=== PATIENT | male | born 1980 | race Caucasian/White ===

== ENCOUNTER → 2024-06-21 | Outpatient (CLI) | payer BC, SELFPAY ==
[2024-06-21 10:38] LABS: Basophils # (Auto) 0.1 Thou/mm3 (0.0-0.2); Basophils % (Auto) 1 % (0-2.5); Eosinophils # (Auto) 0.2 Thou/mm3 (0.0-0.5); Eosinophils % (Auto) 2 % (0-10); Hemoglobin 15.6 g/dL (13.5-16.0); Immature Granulocytes % (Auto) 1 % (0-0); Immature Granulocytes Auto 0.05 Thou/mm3 (0.00-0.00); Lymphocytes # (Auto) 2.2 Thou/mm3 (1.0-4.8); Lymphocytes % (Auto) 23 % (10-50); Mean Corpuscular HGB Conc 33.2 g/dl (31.0-37.0); Mean Corpuscular Hemoglobin 33.3 pg (25.0-35.0); Mean Corpuscular Volume 100 fL (80-100); Monocytes % (Auto) 10 % (0-12); Neutrophils # (Auto) 6.1 Thou/mm3 (1.8-7.7); Neutrophils % (Auto) 63 % (37-80); Nucleated Red Blood Cell % 0 /100 WBC (0); Platelet Count 256 Thou/mm3 (140-440); RDW Standard Deviation 53.9 fL (35.1-43.9); Red Blood Count 4.68 Miln/mm3 (4.50-5.90); White Blood Count 9.7 Thou/mm3 (3.8-10.6)
[2024-06-21 10:49] LABS: PSA Medicare Annual Scrn 0.79 ng/mL (0-4.00)
[2024-06-21 10:52] LABS: Alanine Aminotransferase 52 U/L (10-49); Albumin, Serum 4.5 gm/dL (3.5-5.0); Albumin/Globulin Ratio 1.8 (1.2-2.2); Alkaline Phosphatase 67 U/L (46-116); Anion Gap 6 (7-16); Aspartate Amino Transferase 32 U/L (0-34); BUN/Creatinine Ratio 7 Ratio (12-20); Bilirubin,Total 0.6 mg/dL (0.3-1.2); Blood Urea Nitrogen 6 mg/dL (9-23); Carbon Dioxide 29.3 mMol/L (20.0-31.0); Chloride 104 mMol/L (98-107); Cholesterol 155 mg/dL (132-200); Creatinine (Component) 0.9 mg/dL (0.6-1.3); Globulin 2.5 gm/dL (2.3-3.5); Glucose 109 mg/dL (74-106); HDL Cholesterol 39 mg/dL (40-60); LDL Cholesterol,Calculated 94 mg/dL (0-130); Osmolality,Calculated 276 (275-295); Potassium 3.9 mMol/L (3.4-5.1); Sodium 139 mMol/L (136-145); Triglycerides 110 mg/dL (30-150); Uric Acid 6.1 mg/dL (3.7-9.2); eGFR > 60 See Note
[2024-06-21 11:06] LABS: Creatinine MALB Rnd Ur 218 mg/dL (30-125); Microalbumin Creat Ratio 130 mg/gCrea (<30); Microalbumin, Random Urine 284 mg/L (0-300)
[2024-06-21 11:13] LABS: Glucose Estimated Average 100 mg/dL (80-131); Hemoglobin A1C 5.1 % Hgb (4.8-6.0)
[2024-06-28 07:24] LABS: SHBG 15 nmol/L (10-50)
[2024-06-28 07:25] LABS: Albumin 4.1 g/dL (3.6-5.1); Testosterone, Bioavailable 411.2 ng/dL (110.0-575.0); Testosterone, Free 218.4 pg/mL (46.0-224.0); Testosterone,Total 784 ng/dL (250-1100)
== END | disposition home or self-care (01) ==
LOC: COPL 09:27
PROVIDERS: PCP Nurse Practitioner Family; Referring Provider Nurse Practitioner Family; Visit Provider Nurse Practitioner Family
DX: M10.9 Gout, unspecified (principal); E29.1 Testicular hypofunction; I10 Essential (primary) hypertension; Z12.5 Encounter for screening for malignant neoplasm of prostate
CPT/HCPCS: 36415; 80053; 80061; 82040; 82043; 82570; 83036; 84153; 84270; 84403; 84550; 85025; G0103

== ENCOUNTER → 2024-07-30 | Outpatient (CLI) | payer BC, SELFPAY ==
--- NOTE | 2024-07-30 08:32 | XR_ITS ---
Examination: PA lateral chest 2 views TECHNIQUE: Upright PA lateral chest 2 views Exam date and time: July 30, 2024 0853 hours Comparison September 29, 2023 INDICATIONS: Coughing shortness of breath chest congestion beginning 6 days ago. FINDINGS: Normal heart size Mild opacity left base posteriorly obscuring detail hemidiaphragm No pulmonary edema IMPRESSION: Early pneumonia posterior basal segment left lower lobe
== END | disposition home or self-care (01) ==
LOC: CDIM 08:26
PROVIDERS: PCP Nurse Practitioner Family; Referring Provider Nurse Practitioner Family; Visit Provider Nurse Practitioner Family
DX: J18.9 Pneumonia, unspecified organism (principal)
CPT/HCPCS: 71046

== ENCOUNTER → 2024-09-01 | Outpatient (CLI) | payer BC, SELFPAY ==
[2024-09-01 08:35] LABS: Misc Send Out* See Sep Rpt
[2024-09-01 09:21] LABS: Basophils # (Auto) 0.1 Thou/mm3 (0.0-0.2); Basophils % (Auto) 1 % (0-2.5); Eosinophils # (Auto) 0.4 Thou/mm3 (0.0-0.5); Eosinophils % (Auto) 4 % (0-10); Hematocrit 53.4 % (41.0-53.0); Hemoglobin 18.2 g/dL (13.5-16.0); Immature Granulocytes % (Auto) 1 % (0-0); Immature Granulocytes Auto 0.05 Thou/mm3 (0.00-0.00); Lymphocytes % (Auto) 20 % (10-50); Mean Corpuscular HGB Conc 34.1 g/dl (31.0-37.0); Mean Corpuscular Hemoglobin 33.3 pg (25.0-35.0); Mean Corpuscular Volume 98 fL (80-100); Monocytes # (Auto) 0.9 Thou/mm3 (0.0-0.8); Monocytes % (Auto) 9 % (0-12); Neutrophils # (Auto) 6.5 Thou/mm3 (1.8-7.7); Neutrophils % (Auto) 65 % (37-80); Nucleated Red Blood Cell % 0 /100 WBC (0); Platelet Count 284 Thou/mm3 (140-440); RDW Standard Deviation 48.6 fL (35.1-43.9); Red Blood Count 5.47 Miln/mm3 (4.50-5.90); White Blood Count 9.9 Thou/mm3 (3.8-10.6)
[2024-09-01 09:36] LABS: Glucose Estimated Average 103 mg/dL (80-131); Hemoglobin A1C 5.2 % Hgb (4.8-6.0)
[2024-09-01 09:45] LABS: Vitamin D 25 Hydroxy Total 38.7 ng/mL (7.3-40.2)
[2024-09-01 10:06] LABS: PSA Medicare Annual Scrn 1.48 ng/mL (0-4.00); T4 (Thyroxine) 5.6 mcg/dL (4.5-10.9)
[2024-09-01 10:08] LABS: Creatinine MALB Rnd Ur 88 mg/dL (30-125); Microalbumin Creat Ratio 75 mg/gCrea (<30); Microalbumin, Random Urine 66 mg/L (0-300)
[2024-09-01 10:08] LABS: Alanine Aminotransferase 43 U/L (10-49); Albumin, Serum 4.6 gm/dL (3.5-5.0); Albumin/Globulin Ratio 1.9 (1.2-2.2); Alkaline Phosphatase 54 U/L (46-116); Anion Gap 8 (7-16); Aspartate Amino Transferase 43 U/L (0-34); BUN/Creatinine Ratio 10 Ratio (12-20); Blood Urea Nitrogen 9 mg/dL (9-23); C-Reactive Protein < 0.4 mg/dL (0.0-0.9); Carbon Dioxide 28.7 mMol/L (20.0-31.0); Cardiac Risk Estimate 4.3 RATIO (4.0-6.7); Chloride 100 mMol/L (98-107); Cholesterol 146 mg/dL (132-200); Creatinine (Component) 0.9 mg/dL (0.6-1.3); Globulin 2.4 gm/dL (2.3-3.5); Glucose 80 mg/dL (74-106); HDL Cholesterol 34 mg/dL (40-60); LDL Cholesterol,Calculated 92 mg/dL (0-130); Osmolality,Calculated 271 (275-295); Potassium 3.9 mMol/L (3.4-5.1); Sodium 137 mMol/L (136-145); Thyroid Stimulating Hormone 2.56 uIU/mL (0.55-4.78); Triglycerides 101 mg/dL (30-150); Uric Acid 7.9 mg/dL (3.7-9.2); eGFR > 60 See Note
[2024-09-06 17:49] LABS: Thyroglobulin Antibodies <1 IU/mL (< OR = 1)
[2024-09-07 07:07] LABS: C-Peptide* 2.93 ng/mL (0.80-3.85); Sex Hormone Binding Globulin* 18 nmol/L (10-50); T3, Reverse, LC/MS/MS* 16 ng/dL (8-25); Testosterone, Free,Dialysis 362.9 pg/mL (35.0-155.0); Testosterone, Total, Dialysis 1173 ng/dL (250-1100); Thyroglobulin 13.1 ng/mL
== END | disposition home or self-care (01) ==
LOC: COPL 08:05
PROVIDERS: PCP Nurse Practitioner Family; Referring Provider Nurse Practitioner Family; Visit Provider Nurse Practitioner Family
DX: I10 Essential (primary) hypertension (principal); E29.1 Testicular hypofunction; M10.9 Gout, unspecified; E01.8 Other iodine-deficiency related thyroid disorders and allied conditions; Z12.5 Encounter for screening for malignant neoplasm of prostate; E55.9 Vitamin D deficiency, unspecified; R94.6 Abnormal results of thyroid function studies; R79.89 Other specified abnormal findings of blood chemistry
CPT/HCPCS: 36415; 80053; 80061; 82043; 82306; 82570; 83036; 83789; 84153; 84270; 84402; 84403; 84432; 84436; 84443; 84482; 84550; 84681; 85025; 86140; 86800; G0103

== ENCOUNTER → 2024-09-03 | Outpatient (CLI) | payer BC, SELFPAY ==
[2024-09-03 09:56] LABS: Basophils # (Auto) 0.1 Thou/mm3 (0.0-0.2); Basophils % (Auto) 1 % (0-2.5); Eosinophils # (Auto) 0.4 Thou/mm3 (0.0-0.5); Eosinophils % (Auto) 4 % (0-10); Immature Granulocytes % (Auto) 0 % (0-0); Immature Granulocytes Auto 0.03 Thou/mm3 (0.00-0.00); Lymphocytes # (Auto) 2.2 Thou/mm3 (1.0-4.8); Lymphocytes % (Auto) 20 % (10-50); Mean Corpuscular HGB Conc 33.3 g/dl (31.0-37.0); Mean Corpuscular Hemoglobin 33.3 pg (25.0-35.0); Mean Corpuscular Volume 100 fL (80-100); Monocytes # (Auto) 1.1 Thou/mm3 (0.0-0.8); Monocytes % (Auto) 10 % (0-12); Neutrophils % (Auto) 64 % (37-80); Nucleated Red Blood Cell % 0 /100 WBC (0); Platelet Count 272 Thou/mm3 (140-440); RDW Standard Deviation 49.6 fL (35.1-43.9); White Blood Count 10.9 Thou/mm3 (3.8-10.6)
[2024-09-07 07:08] LABS: Fecal Globin Result NOT DETECTED (NOT DETECTED)
== END | disposition home or self-care (01) ==
LOC: COPL 08:41
PROVIDERS: PCP Family Medicine; Referring Provider Nurse Practitioner Family; Visit Provider Nurse Practitioner Family
DX: I10 Essential (primary) hypertension (principal); Z12.11 Encounter for screening for malignant neoplasm of colon
CPT/HCPCS: 36415; 82274; 85025; G0328

== ENCOUNTER → 2024-09-08 | Outpatient (CLI) | payer BC, SELFPAY ==
--- NOTE | 2024-09-08 10:46 | XR_ITS ---
Examination: Right knee 2 views Technique one AP lateral right knee 2 views Exam date and time: September 08, 2024 1201 hours INDICATIONS: Chronic knee pain with knee surgery 10 years ago. FINDINGS: Moderate to advanced narrowing medial joint space right knee No fracture or dislocation Small knee effusion IMPRESSION: Moderate to advanced narrowing medial joint space right knee
== END | disposition home or self-care (01) ==
PROVIDERS: PCP Nurse Practitioner Family; Referring Provider Nurse Practitioner Family; Visit Provider Nurse Practitioner Family
DX: M25.861 Other specified joint disorders, right knee (principal)
CPT/HCPCS: 73560

== ENCOUNTER → 2024-10-05 | Outpatient (CLI) | payer BC, SELFPAY ==
--- NOTE | 2024-10-05 13:27 | XR_ITS ---
Examination: Abdomen sonogram, Limited Date and time of exam: October 05, 2024 1413 hours INDICATIONS: Left lower abdominal pain beginning 4 days ago diverticulitis history 6 years ago Technique: Real-time comer scale transabdominal sonographic images of the upper abdomen obtained. Findings: Thickened colonic wall IMPRESSION: Significant colonic wall, recommend CT scan abdomen pelvis follow-up to exclude diverticulitis
== END | disposition home or self-care (01) ==
PROVIDERS: PCP Nurse Practitioner Family; Referring Provider Nurse Practitioner Family; Visit Provider Nurse Practitioner Family
DX: R10.32 Left lower quadrant pain (principal)
CPT/HCPCS: 76705

== ENCOUNTER → 2024-12-03 | Outpatient (CLI) | payer BC, SELFPAY ==
[2024-12-03 08:59] LABS: Basophils # (Auto) 0.1 Thou/mm3 (0.0-0.2); Basophils % (Auto) 1 % (0-2.5); Eosinophils # (Auto) 0.1 Thou/mm3 (0.0-0.5); Eosinophils % (Auto) 1 % (0-10); Glucose Estimated Average 100 mg/dL (80-131); Hematocrit 43.1 % (41.0-53.0); Hemoglobin 14.7 g/dL (13.5-16.0); Hemoglobin A1C 5.1 % Hgb (4.8-6.0); Immature Granulocytes % (Auto) 0 % (0-0); Immature Granulocytes Auto 0.04 Thou/mm3 (0.00-0.00); Lymphocytes # (Auto) 2.3 Thou/mm3 (1.0-4.8); Lymphocytes % (Auto) 24 % (10-50); Mean Corpuscular HGB Conc 34.1 g/dl (31.0-37.0); Mean Corpuscular Hemoglobin 33.3 pg (25.0-35.0); Mean Corpuscular Volume 98 fL (80-100); Monocytes % (Auto) 11 % (0-12); Neutrophils # (Auto) 5.9 Thou/mm3 (1.8-7.7); Neutrophils % (Auto) 63 % (37-80); Nucleated Red Blood Cell % 0 /100 WBC (0); Platelet Count 336 Thou/mm3 (140-440); RDW Standard Deviation 51.2 fL (35.1-43.9); Red Blood Count 4.41 Miln/mm3 (4.50-5.90); White Blood Count 9.3 Thou/mm3 (3.8-10.6)
[2024-12-03 09:09] LABS: Alanine Aminotransferase 26 U/L (10-49); Albumin, Serum 4.3 gm/dL (3.5-5.0); Albumin/Globulin Ratio 1.7 (1.2-2.2); Alkaline Phosphatase 58 U/L (46-116); Anion Gap 10 (7-16); Aspartate Amino Transferase 19 U/L (0-34); BUN/Creatinine Ratio 23 Ratio (12-20); Bilirubin,Total 1.2 mg/dL (0.3-1.2); Blood Urea Nitrogen 21 mg/dL (9-23); Calcium 9.5 mg/dL (8.3-10.6); Calcium (Corrected) 9.5 mg/dL (8.5-10.1); Carbon Dioxide 25.9 mMol/L (20.0-31.0); Cardiac Risk Estimate 3.6 RATIO (4.0-6.7); Chloride 105 mMol/L (98-107); Cholesterol 118 mg/dL (132-200); Creatinine (Component) 0.9 mg/dL (0.6-1.3); Globulin 2.6 gm/dL (2.3-3.5); Glucose 100 mg/dL (74-106); HDL Cholesterol 33 mg/dL (40-60); LDL Cholesterol,Calculated 70 mg/dL (0-130); Osmolality,Calculated 284 (275-295); Potassium 4.1 mMol/L (3.4-5.1); Sodium 141 mMol/L (136-145); Thyroid Stimulating Hormone 2.61 uIU/mL (0.55-4.78); Total Protein 6.9 gm/dL (5.7-8.2); Triglycerides 76 mg/dL (30-150); eGFR > 60 See Note
[2024-12-03 09:22] LABS: T4 (Thyroxine) 5.6 mcg/dL (4.5-10.9)
[2024-12-03 09:23] LABS: Creatinine MALB Rnd Ur 98 mg/dL (30-125); Microalbumin Creat Ratio 17 mg/gCrea (<30); Microalbumin, Random Urine 17 mg/L (0-300)
[2024-12-10 06:39] LABS: Gamma Glutamyl Transpeptidase* 33 U/L (3-95); Sex Hormone Binding Globulin* 19 nmol/L (10-50); Testosterone, Free,Dialysis 44.8 pg/mL (35.0-155.0); Testosterone, Total, Dialysis 208 ng/dL (250-1100)
== END | disposition home or self-care (01) ==
LOC: COPL 07:10
PROVIDERS: PCP Internal Medicine; Referring Provider Nurse Practitioner Family; Visit Provider Nurse Practitioner Family
DX: K76.0 Fatty (change of) liver, not elsewhere classified (principal); E29.1 Testicular hypofunction; I10 Essential (primary) hypertension
CPT/HCPCS: 36415; 80053; 80061; 82043; 82570; 82977; 83036; 84270; 84402; 84403; 84436; 84443; 85025

== ENCOUNTER → 2025-02-17 | Outpatient (CLI) | payer BC, SELFPAY ==
--- NOTE | 2025-02-17 10:30 | XR_ITS ---
Examination: Abdomen sonogram, Limited Date and time of exam: February 17, 2025 1045 hours INDICATIONS: Umbilical region tenderness and discomfort several weeks Technique: Real-time comer scale transabdominal sonographic images of the upper abdomen obtained. Findings: Umbilical hernia 17 x 11 x 16 mm IMPRESSION: Umbilical hernia 17 x 11 x 16 mm
== END | disposition home or self-care (01) ==
PROVIDERS: PCP Nurse Practitioner Family; Referring Provider Nurse Practitioner Family; Visit Provider Nurse Practitioner Family
DX: K42.9 Umbilical hernia without obstruction or gangrene (principal)
CPT/HCPCS: 76705

== ENCOUNTER → 2025-04-15 | Outpatient (CLI) | payer BC, SELFPAY ==
[2025-04-15 11:43] LABS: Basophils # (Auto) 0.1 Thou/mm3 (0.0-0.2); Basophils % (Auto) 1 % (0-2.5); Eosinophils # (Auto) 0.1 Thou/mm3 (0.0-0.5); Eosinophils % (Auto) 1 % (0-10); Hematocrit 52.8 % (41.0-53.0); Hemoglobin 17.7 g/dL (13.5-16.0); Immature Granulocytes Auto 0.04 Thou/mm3 (0.00-0.00); Lymphocytes # (Auto) 2.1 Thou/mm3 (1.0-4.8); Lymphocytes % (Auto) 22 % (10-50); Mean Corpuscular HGB Conc 33.5 g/dl (31.0-37.0); Mean Corpuscular Hemoglobin 33.1 pg (25.0-35.0); Mean Corpuscular Volume 99 fL (80-100); Monocytes # (Auto) 1.1 Thou/mm3 (0.0-0.8); Monocytes % (Auto) 12 % (0-12); Neutrophils # (Auto) 6.0 Thou/mm3 (1.8-7.7); Neutrophils % (Auto) 64 % (37-80); Nucleated Red Blood Cell # 0.00 Thou/mm3 (0.00-0.00); Nucleated Red Blood Cell % 0 /100 WBC (0); Platelet Count 298 Thou/mm3 (140-440); RDW Standard Deviation 50.2 fL (35.1-43.9); Red Blood Count 5.34 Miln/mm3 (4.50-5.90); White Blood Count 9.4 Thou/mm3 (3.8-10.6)
[2025-04-15 11:47] LABS: Glucose Estimated Average 100 mg/dL (80-131); Hemoglobin A1C 5.1 % Hgb (4.8-6.0)
[2025-04-15 11:52] LABS: PSA Medicare Annual Scrn 0.47 ng/mL (0-4.00)
[2025-04-15 11:53] LABS: Alanine Aminotransferase 111 U/L (10-49); Albumin, Serum 4.2 gm/dL (3.5-5.0); Albumin/Globulin Ratio 1.6 (1.2-2.2); Alkaline Phosphatase 55 U/L (46-116); Anion Gap 9 (7-16); Aspartate Amino Transferase 279 U/L (0-34); BUN/Creatinine Ratio 7 Ratio (12-20); Bilirubin,Total 1.2 mg/dL (0.3-1.2); Blood Urea Nitrogen 7 mg/dL (9-23); Calcium 9.3 mg/dL (8.3-10.6); Calcium (Corrected) 9.3 mg/dL (8.5-10.1); Carbon Dioxide 29.2 mMol/L (20.0-31.0); Cardiac Risk Estimate 3.6 RATIO (4.0-6.7); Chloride 101 mMol/L (98-107); Cholesterol 135 mg/dL (132-200); Creatinine (Component) 1.0 mg/dL (0.6-1.3); Globulin 2.6 gm/dL (2.3-3.5); Glucose 88 mg/dL (74-106); HDL Cholesterol 38 mg/dL (40-60); LDL Cholesterol,Calculated 82 mg/dL (0-130); Osmolality,Calculated 274 (275-295); Potassium 3.8 mMol/L (3.4-5.1); Sodium 139 mMol/L (136-145); Total Protein 6.8 gm/dL (5.7-8.2); Triglycerides 73 mg/dL (30-150); Uric Acid 8.5 mg/dL (3.7-9.2); eGFR > 60 See Note
[2025-04-25 09:21] LABS: Estradiol, Ultrasensitive* 97 pg/mL (< OR = 29); Testosterone, Free,Dialysis 292.2 pg/mL (35.0-155.0); Testosterone, Total, Dialysis 866 ng/dL (250-1100)
== END | disposition home or self-care (01) ==
LOC: COPL 10:13
PROVIDERS: PCP Nurse Practitioner Family; Referring Provider Nurse Practitioner Family; Visit Provider Nurse Practitioner Family
DX: E29.9 Testicular dysfunction, unspecified (principal); M10.9 Gout, unspecified; I10 Essential (primary) hypertension; Z12.5 Encounter for screening for malignant neoplasm of prostate
CPT/HCPCS: 36415; 80053; 80061; 82670; 83036; 84153; 84402; 84403; 84550; 85025; G0103

== ENCOUNTER → 2025-05-03 | Outpatient (CLI) | payer BC, SELFPAY ==
[2025-05-03 10:44] LABS: Alanine Aminotransferase 43 U/L (10-49); Albumin, Serum 4.6 gm/dL (3.5-5.0); Albumin/Globulin Ratio 1.5 (1.2-2.2); Alkaline Phosphatase 60 U/L (46-116); Anion Gap 8 (7-16); Aspartate Amino Transferase 33 U/L (0-34); BUN/Creatinine Ratio 10 Ratio (12-20); Bilirubin,Total 1.8 mg/dL (0.3-1.2); Blood Urea Nitrogen 11 mg/dL (9-23); Calcium 10.1 mg/dL (8.3-10.6); Calcium (Corrected) 10.1 mg/dL (8.5-10.1); Carbon Dioxide 27.5 mMol/L (20.0-31.0); Chloride 103 mMol/L (98-107); Creatinine (Component) 1.1 mg/dL (0.6-1.3); Globulin 3.0 gm/dL (2.3-3.5); Glucose 84 mg/dL (74-106); Osmolality,Calculated 274 (275-295); Potassium 4.2 mMol/L (3.4-5.1); Sodium 138 mMol/L (136-145); Total Protein 7.6 gm/dL (5.7-8.2); eGFR > 60 See Note
== END | disposition home or self-care (01) ==
LOC: COPL 08:51
PROVIDERS: PCP Nurse Practitioner Family; Referring Provider Nurse Practitioner Family; Visit Provider Nurse Practitioner Family
DX: E29.9 Testicular dysfunction, unspecified (principal); M10.9 Gout, unspecified; I10 Essential (primary) hypertension; Z12.5 Encounter for screening for malignant neoplasm of prostate
CPT/HCPCS: 36415; 80053

== ENCOUNTER → 2025-06-07 | Outpatient (CLI) | payer BC, SELFPAY ==
[2025-06-07 08:35] LABS: Basophils # (Auto) 0.1 Thou/mm3 (0.0-0.2); Basophils % (Auto) 1 % (0-2.5); Eosinophils # (Auto) 0.1 Thou/mm3 (0.0-0.5); Eosinophils % (Auto) 1 % (0-10); Hematocrit 50.8 % (41.0-53.0); Hemoglobin 16.9 g/dL (13.5-16.0); Immature Granulocytes Auto 0.02 Thou/mm3 (0.00-0.00); Lymphocytes # (Auto) 1.7 Thou/mm3 (1.0-4.8); Lymphocytes % (Auto) 25 % (10-50); Mean Corpuscular HGB Conc 33.3 g/dl (31.0-37.0); Mean Corpuscular Hemoglobin 32.8 pg (25.0-35.0); Mean Corpuscular Volume 99 fL (80-100); Monocytes # (Auto) 0.8 Thou/mm3 (0.0-0.8); Monocytes % (Auto) 11 % (0-12); Neutrophils # (Auto) 4.4 Thou/mm3 (1.8-7.7); Neutrophils % (Auto) 61 % (37-80); Nucleated Red Blood Cell # 0.00 Thou/mm3 (0.00-0.00); Nucleated Red Blood Cell % 0 /100 WBC (0); Platelet Count 317 Thou/mm3 (140-440); RDW Standard Deviation 48.6 fL (35.1-43.9); Red Blood Count 5.15 Miln/mm3 (4.50-5.90); White Blood Count 7.1 Thou/mm3 (3.8-10.6)
[2025-06-07 08:48] LABS: Glucose Estimated Average 108 mg/dL (80-131); Hemoglobin A1C 5.4 % Hgb (4.8-6.0)
[2025-06-07 09:03] LABS: Alanine Aminotransferase 28 U/L (10-49); Albumin, Serum 4.5 gm/dL (3.5-5.0); Albumin/Globulin Ratio 2.0 (1.2-2.2); Alkaline Phosphatase 50 U/L (46-116); Anion Gap 9 (7-16); Aspartate Amino Transferase 22 U/L (0-34); BUN/Creatinine Ratio 12 Ratio (12-20); Bilirubin,Total 0.9 mg/dL (0.3-1.2); Blood Urea Nitrogen 12 mg/dL (9-23); Calcium 9.8 mg/dL (8.3-10.6); Calcium (Corrected) 9.8 mg/dL (8.5-10.1); Carbon Dioxide 27.5 mMol/L (20.0-31.0); Cardiac Risk Estimate 3.6 RATIO (4.0-6.7); Chloride 104 mMol/L (98-107); Cholesterol 127 mg/dL (132-200); Creatinine (Component) 1.0 mg/dL (0.6-1.3); Globulin 2.3 gm/dL (2.3-3.5); Glucose 93 mg/dL (74-106); HDL Cholesterol 35 mg/dL (40-60); LDL Cholesterol,Calculated 74 mg/dL (0-130); Osmolality,Calculated 279 (275-295); Potassium 4.0 mMol/L (3.4-5.1); Sodium 140 mMol/L (136-145); Total Protein 6.8 gm/dL (5.7-8.2); Triglycerides 90 mg/dL (30-150); eGFR > 60 See Note
[2025-06-16 06:37] LABS: DHEA Sulfate* 159 mcg/dL (70-495); Estradiol, Ultrasensitive* 26 pg/mL (< OR = 29); Progesterone,LC/MS* <0.1 ng/mL (< OR = 0.2); Prolactin* 7.7 ng/mL (2.0-18.0); Sex Hormone Binding Globulin* 18 nmol/L (10-50); Testosterone, Free,Dialysis 212.2 pg/mL (35.0-155.0); Testosterone, Total, Dialysis 776 ng/dL (250-1100)
== END | disposition home or self-care (01) ==
LOC: COPL 06:48
PROVIDERS: PCP Family Medicine; Referring Provider Nurse Practitioner Family; Visit Provider Nurse Practitioner Family
DX: R53.83 Other fatigue (principal); E29.1 Testicular hypofunction
CPT/HCPCS: 36415; 80053; 80061; 82627; 82670; 83036; 84144; 84146; 84270; 84402; 84403; 85025